=== PATIENT | male | born 1975 ===

== ENCOUNTER → 2017-10-14 | Outpatient (CLI) | payer OTHER ==
[2017-10-14 18:25] LABS: BASO # 0.1 x10^3/uL (0.0-0.2); BASO % 1 % (0-3); EOS # 0.5 x10^3/uL (0.0-0.7); EOS % 7 % (0-3); HEMATOCRIT 46.7 % (39.0-53.0); HEMOGLOBIN 15.7 g/dL (13.0-17.5); LYMPH # 1.9 x10^3/uL (1.0-4.8); LYMPH % 26 % (24-48); MEAN CORPUSCULAR HEMOGLOBIN 31 pg (25-35); MEAN CORPUSCULAR HGB CONC 34 g/dL (31-37); MEAN CORPUSCULAR VOLUME 91 fL (79-100); MONO # 0.8 x10^3/uL (0.0-1.1); MONO % 10 % (0-9); NEUT % 56 % (31-73); PLATELET COUNT 422 x10^3/uL (140-400); RED BLOOD COUNT 5.12 x10^6/uL (4.30-5.70); RED CELL DISTRIBUTION WIDTH 13.4 % (11.5-14.5); WHITE BLOOD COUNT 7.3 x10^3/uL (4.0-11.0)
[2017-10-14 18:31] LABS: ALBUMIN 3.7 g/dL (3.4-5.0); ALBUMIN/GLOBULIN RATIO 1.1 (1.0-1.7); CALCIUM 8.9 mg/dL (8.5-10.1); GFR 81.2; POTASSIUM 4.5 mmol/L (3.5-5.1); TOTAL BILIRUBIN 0.7 mg/dL (0.2-1.0); TOTAL PROTEIN 7.1 g/dL (6.4-8.2)
== END | disposition home or self-care (01) ==
LOC: SPEC 18:04 → EEVIPCON 18:04
PROVIDERS: ATTEND Nurse Practitioner Family
DX: R10.9 Unspecified abdominal pain (principal)
CPT/HCPCS: 36415; 80053; 85025